=== PATIENT | female | born 1960 | race Asian ===

== ENCOUNTER 2017-07-19 03:16 | Inpatient (IN) | payer OTHER ==
[~2017-07-19] VITALS: Ht 160 cm; Wt 60.6 kg
[2017-07-19] MEDS ORDERED: ASPIRIN 325MG TABLET PO ONE (04:00)
[2017-07-19 04:28] LABS: BASOPHILS % 1.4 % (0.0-2.0); HEMATOCRIT. 38.8 % (36.0-48.0); HEMOGLOBIN. 13.2 g/dL (12.0-16.0); LYMPHOCYTES % 48.5 % (20.0-50.0); MEAN CORPUSCULAR HEMOGLOBIN 30.5 pg (28.0-32.0); MEAN CORPUSCULAR VOLUME 89.6 fL (81.0-99.0); MEAN PLATELET VOLUME 10.8 fl (7.4-10.4); MONOCYTES % 10.1 % (2.0-8.0); PLATELET 187 x1000/uL (130-400); RED BLOOD CELL COUNT 4.33 mill/uL (4.2-5.4); RED CELL DISTRIBUTION WIDTH 12.1 % (11.6-14.6)
[2017-07-19 04:39] LABS: PROTHROMBIN TIME 10.6 sec (9.4-11.6)
[2017-07-19 04:46] LABS: CHLORIDE 107 mEq/L (98-107); ETHANOL BLOOD < 10 mg/dL
[2017-07-19 04:52] LABS: TROPONIN I < 0.02 ng/mL (0.00-0.04)
[2017-07-19] MEDS ORDERED: IOHEXOL-350 100 ML BOTTLE ONE (06:05)
[2017-07-19 09:01] LABS: CLARITY URINE CLEAR (CLEAR); COLOR URINE YELLOW (YELLOW); KETONES URINE NEGATIVE (NEGATIVE); LEUKOCYTE ESTERASE URINE TRACE (NEGATIVE); NITRITE URINE NEGATIVE (NEGATIVE); OCCULT BLOOD URINE NEGATIVE (NEGATIVE); PH URINE 8.5 (4.5-8.0); PROTEIN URINE NEGATIVE (NEGATIVE); SPECIFIC GRAVITY URINE 1.056 (1.005-1.030); UROBILINOGEN URINE 0.2 E.U./dL (0.2-1.0)
[2017-07-19] MEDS ORDERED: GUAIFENESIN 200MG/10ML SUGAR FREE UDC PO PRN (10:30)
[2017-07-19] MEDS ORDERED: MAGNESIUM/ALUMINUM HYDROXIDE/SIMETHICONE 30ML UDC PO PRN (10:30)
[2017-07-19] MEDS ORDERED: NITROGLYCERIN 0.4MG TABLET SL SL PRN (10:30)
[2017-07-19] MEDS ORDERED: ONDANSETRON HCL 4MG/2ML VIAL IV PRN (10:30)
[2017-07-19] MEDS ORDERED: NA PHOS,M-B/NA PHOS,DI-BA ENEMA 118ML PR PRN (10:30)
[2017-07-19] MEDS ORDERED: LORAZEPAM 0.5MG TABLET PO PRN (10:30)
[2017-07-19] MEDS ORDERED: IPRATROPIUM/ALBUTEROL 0.5-3(2.5)MG/3ML NEB INH PRN (10:30)
[2017-07-19 12:37] LABS: CANNABINOID URINE SCREEN NEGATIVE (NEGATIVE)
[2017-07-19 12:39] LABS: *AMPHETAMINES SCREEN URINE NEGATIVE (NEGATIVE); *BARBITURATES SCREEN URINE NEGATIVE (NEGATIVE); *BENZODIAZEPINES SCREEN URINE NEGATIVE (NEGATIVE); *COCAINE SCREEN URINE NEGATIVE (NEGATIVE); METHADONE URINE SCREEN NEGATIVE (NEGATIVE); OPIATES URINE SCREEN NEGATIVE (NEGATIVE); PHENCYCLIDINE URINE SCREEN NEGATIVE (NEGATIVE)
[2017-07-19 16:34] LABS: CREATINE KINASE 58 IU/L (26-192); CREATINE KINASE MB FRACTION < 0.5 ng/mL (0.5-3.6); TROPONIN I < 0.02 ng/mL (0.00-0.04)
[2017-07-19] MEDS ORDERED: ACETAMINOPHEN 325MG TABLET PO PRN (16:51)
[2017-07-19] MEDS ORDERED: DOCUSATE SODIUM 100MG CAPSULE PO PRN (16:52)
[2017-07-19] MEDS ORDERED: DIPHENHYDRAMINE 50MG/ML VIAL IV PRN (16:52)
[2017-07-19] MEDS ORDERED: CLONIDINE 0.1MG TABLET PO PRN (16:52)
[2017-07-19] MEDS ORDERED: MORPHINE SULFATE 4 MG/ML CPJ (NOT FOR IM USE) IV PRN (16:56)
[2017-07-19] MEDS ORDERED: TRAMADOL 50MG TABLET PO PRN (16:56)
[2017-07-19] MEDS: ENOXAPARIN 40MG/0.4ML SYR SUBCUT SCH (17:22)
[2017-07-19 17:30] VITALS: BP 130/70
[2017-07-19 20:00] VITALS: BP 108/55
[2017-07-20] VITALS (7 sets, daily range): BP systolic 107–126; BP diastolic 56–74
[2017-07-20 00:33] LABS: CREATINE KINASE 49 IU/L (26-192); CREATINE KINASE MB FRACTION < 0.5 ng/mL (0.5-3.6); TROPONIN I < 0.02 ng/mL (0.00-0.04)
[2017-07-20] MEDS ORDERED: ASPIRIN 325MG EC TABLET PO SCH (09:00)
[2017-07-20] MEDS: ENOXAPARIN 40MG/0.4ML SYR SUBCUT SCH (18:12)
== END 2017-07-20 18:41 | disposition home or self-care (01) | DRG 69 ==
LOC: ER 03:16 → 5WST 05:20 → EDBEDREQSVC 05:22 → ENRESERV 15:37
PROVIDERS: ADMIT Internal Medicine; ATTEND Internal Medicine
DX: G45.9 Transient cerebral ischemic attack, unspecified (principal); Z90.49 Acquired absence of other specified parts of digestive tract
CPT/HCPCS: 36415; 70450; 70496; 70498; 70544; 70553; 71045; 80053; 80061; 80305; 81003; 82550; 82553; 82962; 83036; 84484; 85025; 85610; 93306; 93970; 99291; G0482; J1650; Q9967

== ENCOUNTER 2020-04-05 00:51 | Emergency (ER) | payer OTHER ==
[~2020-04-05] VITALS: Ht 162.6 cm; Wt 61.3 kg
[2020-04-05] MEDS ORDERED: ONDANSETRON 4MG ODT PO ONE (01:15)
[2020-04-05] MEDS ORDERED: ALPRAZOLAM 0.25 MG TABLET PO ONE (01:15)
[2020-04-05 01:41] LABS: EOSINOPHILS % 3.3 % (0.0-5.0); HEMATOCRIT. 37.4 % (36.0-48.0); HEMOGLOBIN. 12.9 g/dL (12.0-16.0); LYMPHOCYTES % 43.6 % (20.0-50.0); MEAN CORPUSCULAR HEMOGLOBIN 30.8 pg (28.0-32.0); MEAN CORPUSCULAR VOLUME 89.3 fL (81.0-99.0); MEAN PLATELET VOLUME 9.8 fl (7.4-10.4); MONOCYTES % 10.1 % (2.0-8.0); PLATELET 164 x1000/uL (130-400); RED BLOOD CELL COUNT 4.19 mill/uL (4.2-5.4); RED CELL DISTRIBUTION WIDTH 12.2 % (11.6-14.6)
[2020-04-05 01:42] LABS: CHLORIDE 107 mEq/L (98-107)
[2020-04-05 05:36] VITALS: BP 103/54
== END 2020-04-05 05:37 | disposition home or self-care (01) ==
LOC: ER 00:51
DX: R42 Dizziness and giddiness (principal); I10 Essential (primary) hypertension; F41.8 Other specified anxiety disorders; K29.70 Gastritis, unspecified, without bleeding
CPT/HCPCS: 36415; 80048; 85025; 99284; Q0162